=== PATIENT | female | born 1935 | race Caucasian/White ===

== ENCOUNTER 2024-08-22 16:14 | Outpatient (RCR) | payer OTHER, SELFPAY | END 2024-08-22 23:59 | disposition home or self-care (01) | LOC: RST 16:14 | PROVIDERS: ATTENDING PHYSICIAN Otolaryngology; FAMILY PHYSICIAN Family Medicine | DX: R49.0 Dysphonia (principal) | CPT/HCPCS: 92507; 92524 ==

== ENCOUNTER 2024-09-26 10:34 | Outpatient (RCR) | payer OTHER, SELFPAY | END 2024-09-26 23:59 | disposition home or self-care (01) | LOC: RST 10:34 | PROVIDERS: ATTENDING PHYSICIAN Otolaryngology; FAMILY PHYSICIAN Family Medicine | DX: R49.0 Dysphonia (principal) | CPT/HCPCS: 92507 ==

== ENCOUNTER 2024-10-17 13:04 | Outpatient (RCR) | payer OTHER, SELFPAY | END 2024-10-17 23:59 | disposition home or self-care (01) | LOC: RST 13:04 | PROVIDERS: ATTENDING PHYSICIAN Otolaryngology; FAMILY PHYSICIAN Family Medicine | DX: R49.0 Dysphonia (principal) | CPT/HCPCS: 92507 ==

== ENCOUNTER 2024-10-30 15:17 | Outpatient (RCR) | payer OTHER, SELFPAY | END 2024-10-30 23:59 | disposition home or self-care (01) | LOC: RST 15:17 | PROVIDERS: ATTENDING PHYSICIAN Otolaryngology; FAMILY PHYSICIAN Family Medicine | DX: R49.0 Dysphonia (principal) | CPT/HCPCS: 92507 ==

== ENCOUNTER → 2024-12-13 16:44 | Outpatient (REF) | payer OTHER, SELFPAY | LOC: RAD 16:44 | PROVIDERS: ATTENDING PHYSICIAN Family Medicine | DX: M25.531 Pain in right wrist (principal) | CPT/HCPCS: 73110 ==

== ENCOUNTER 2024-12-25 13:05 | Outpatient (RCR) | payer OTHER, SELFPAY | END 2024-12-25 23:59 | disposition home or self-care (01) | LOC: RST 13:05 | PROVIDERS: ATTENDING PHYSICIAN Otolaryngology; FAMILY PHYSICIAN Family Medicine | DX: R49.0 Dysphonia (principal) | CPT/HCPCS: 92507 ==

== ENCOUNTER 2025-01-22 13:34 | Outpatient (RCR) | payer OTHER, SELFPAY | END 2025-01-22 13:51 | disposition home or self-care (01) | LOC: RST 13:34 | PROVIDERS: ATTENDING PHYSICIAN Otolaryngology; FAMILY PHYSICIAN Family Medicine | DX: R49.0 Dysphonia (principal); J38.2 Nodules of vocal cords | CPT/HCPCS: 92507 ==